=== PATIENT | female | born 1965 | race African-American/Black ===

== ENCOUNTER → 2016-06-05 | Outpatient (CLI) | payer OTHER | LOC: RAD 01:04 | DX: Z12.31 Encounter for screening mammogram for malignant neoplasm of breast (principal) ==

== ENCOUNTER → 2016-06-09 | Outpatient (CLI) | payer OTHER | LOC: RAD 01:16 | DX: N63 Unspecified lump in breast (principal) ==

== ENCOUNTER 2016-11-18 10:35 | Emergency (ER) | payer OTHER ==
[~2016-11-18] VITALS: Ht 152.4 cm; Wt 90.7 kg
[2016-11-18] MEDS ORDERED: JANUMET 50-5001 EACH PO (10:49)
[2016-11-18] MEDS ORDERED: DIFLUCAN200 MG PO (11:42)
[2016-11-18] MEDS ORDERED: AMOXICILLIN500 M1 PO (11:42)
[2016-11-18 11:49] VITALS: BP 125/76
== END 2016-11-18 11:48 | disposition home or self-care (01) ==
LOC: ER 10:35
DX: J02.0 Streptococcal pharyngitis (principal); E11.9 Type 2 diabetes mellitus without complications; D86.9 Sarcoidosis, unspecified

== ENCOUNTER 2016-11-30 04:22 | Emergency (ER) | payer OTHER ==
[~2016-11-30] VITALS: Ht 152.4 cm; Wt 90.7 kg
[~2016-11-30 04:22] MED LIST: AMOXICILLIN500 M1 PO; DIFLUCAN200 MG PO; JANUMET 50-5001 EACH PO
[2016-11-30 04:39] LABS: URINE BILIRUBIN NEGATIVE (Negative); URINE BLOOD 2+ (Negative); URINE COLOR YELLOW; URINE GLUCOSE-RANDOM* NEGATIVE (Negative); URINE KETONES NEGATIVE (Negative); URINE PROTEIN (DIPSTICK) 1+ (Negative); URINE SPECIFIC GRAVITY 1.025 (1.003-1.035); URINE UROBILINOGEN 0.2 E.U./dl (0.2-1.0)
[2016-11-30 04:42] LABS: URINE LEUKOCYTES-REFLEX 3+ (Negative)
[2016-11-30] MEDS ORDERED: PYRIDIUM200 MG PO (04:47)
[2016-11-30] MEDS ORDERED: MACROBID 100 M100 M1 PO (04:47)
[2016-11-30 04:52] LABS: CASTS None Seen /LPF (None Seen); CRYSTALS None Seen /LPF (None Seen); URINE WBC-REFLEX >25 Many /HPF (0-5)
[2016-11-30 04:54] LABS: SQUAMOUS 0-3 Few /LPF (0-3); YEAST-REFLEX Present (None Seen)
[2016-11-30 05:03] VITALS: BP 131/75
== END 2016-11-30 05:05 | disposition home or self-care (01) ==
LOC: ER 04:22
PROVIDERS: Emergency Medicine
DX: N39.0 Urinary tract infection, site not specified (principal); E11.9 Type 2 diabetes mellitus without complications

== ENCOUNTER → 2017-06-11 | Outpatient (CLI) | payer OTHER ==
[~2017-06-11] MED LIST changes: +MACROBID 100 M100 M1 PO; +PYRIDIUM200 MG PO
== END ==
LOC: RAD 06-09 12:42
DX: Z12.31 Encounter for screening mammogram for malignant neoplasm of breast (principal)